=== PATIENT | female | born 1975 | race Caucasian/White ===

== ENCOUNTER 2021-09-24 10:59 | Emergency (ER) | payer BC, SELFPAY ==
[2021-09-24 11:00] VITALS: BP 151/101; PULSE 84; RESP 18; TEMP 36.6; O2SAT 97; BMI 30.2
[2021-09-24 11:20] VITALS: BP 145/94; PULSE 86; RESP 19; O2SAT 99
--- NOTE | 2021-09-24 11:49 | EKG12_ITS ---
Test Reason : PALPS Blood Pressure : / mmHG Vent. Rate : 077 BPM Atrial Rate : 077 BPM P-R Int : 142 ms QRS Dur : 084 ms QT Int : 380 ms P-R-T Axes : 068 050 054 degrees QTc Int : 430 ms Sinus rhythm with sinus arrhythmia with occasional Premature ventricular complexes Otherwise normal ECG Confirmed by WANG KIDD, ROSA MARIA ([id number]), order editor BERE DELEON ([id number]) on 09/26/2021 9:47:41 AM Referred By: [id number] Confirmed By:ROSA MARIA PIÑA MD
--- NOTE | 2021-09-24 11:50 | RAD_ITS ---
STUDY: X-RAY CHEST REASON FOR EXAM: Female, 46 years old. Palpitations TECHNIQUE: AP COMPARISON: None. FINDINGS: EKG leads project over the chest. The lungs are clear and expanded. There is no demonstrated pleural abnormality. Normal size heart. Normal mediastinum and jennifer. Normal visualized pulmonary arteries. Normal visualized aortic arch and descending thoracic aorta. Normal visualized thoracic spine. Normal visualized ribs, clavicles, and shoulders. There is no demonstrated abnormality of the visualized soft tissue structures of the upper abdomen. RAD/Chest 1 View (Portable) IMPRESSION: 1. Nonacute portable x-ray examination of the chest. Electronically Signed: Dann Mata MD ([place]) at 12:27 EST , Service support ,
[2021-09-24 11:58] LABS: Absolute Lymphocyte Count 1.54 X10^3/uL (0.83-4.51); Absolute Neutrophil Count 3.9 X10^3/uL (2.0-7.7); Basophil# 0.03 X10^3/uL; Basophil% 0.5 % (0-1); Eosinophil# 0.12 X10^3/uL; Hematocrit 42.5 % (37-47); Hemoglobin 14.1 g/dL (12.0-15.0); Lymphocyte # 1.54 X10^3/ul (0.83-4.51); Lymphocyte % 25.6 % (19-41); Mean Corp Hgb Conc 33.2 g/dL (32-36); Mean Corpuscular Hgb 31.1 pg (27.0-32.0); Mean Corpuscular Volume 93.8 fL (81-99); Mean Platelet Vol. 10.2 fl (6.2-12.0); Monocyte% 6.7 % (0-10); NRBC Flagged by Analyzer 0 % (0-5); Neutrophil # 3.91 X10^3/uL (2.7-7.7); Platelet Count 332 K/mm3 (150-450); RBC Distribution Width CV 12.5 % (11.6-14.6); RBC Distribution Width SD 43.1 fl (35.1-43.9); Red Blood Count 4.53 M/mm3 (4.2-5.4)
[2021-09-24 12:05] LABS: D-Dimer Quantitative (DVT/PE) <= 0.27 FEU/ug/m (0.27-0.49)
[2021-09-24 12:11] LABS: ALB/GLOB Ratio 0.9 RATIO (0.9-2.4); AST(SGOT) 11 U/L (15-37); Alanine Aminotransfer ALT/SGPT 17 U/L (13-56); Albumin, Serum 3.9 g/dL (3.2-5.0); Alkaline Phosphatase 71 U/L (45-117); Anion Gap 6 (5-15); BUN 10 mg/dL (7-18); BUN/Creat Ratio 14.3 RATIO (10-20); Calcium,Total 9.2 mg/dL (8.5-10.1); Chloride 107 mmol/L (98-107); EST Glomerular Filtration Rate 96 mL/min (>60); Est Glom Filt Rate - Afr Amer 117 mL/min (>60); Estimated Creatinine Clearance 96.01 ml/min; Globulin 4.2 g/dL (2.2-4.2); Glucose 99 mg/dL (74-106); Potassium 3.6 mmol/L (3.5-5.1); Protein, Total 8.1 g/dL (6.4-8.2); Sodium Level 137 mmol/L (136-145); Troponin-I HS 13 pg/mL (3.0-54.0)
[2021-09-24 12:15] LABS: Bacteria 0 SEEN /hpf (None Seen); Mucous, Urine 0 SEEN /hpf (<or=2+); Red Blood Cells-Urine 0 SEEN /hpf (0-5); White Blood Cells 0 SEEN /hpf (0-5)
[2021-09-24 12:18] LABS: Color, Urine Straw (Yellow); Glucose, Dipstick Normal (Normal); Ketone-Dipstick Negative (Negative); Leukocyte Esterase-Dipstick Negative /ul (Negative); Nitrite-Dipstick Negative (Negative); Occult Blood-Urine Negative /ul (Negative); Protein-Dipstick Negative (Negative); Urine Bilirubin Dipstick Negative (Negative); Urine Clarity Sl. Cloudy (Clear); Urine Urobilinogen Normal (Normal)
[2021-09-24 12:29] LABS: Squamous Epithelial Cells - UA 0-5 SEEN /hpf (5-10)
[2021-09-24 13:06] VITALS: BP 137/98; PULSE 77; RESP 18; O2SAT 100
[2021-09-24 13:48] LABS: Troponin-I HS 13 pg/mL (3.0-54.0)
--- NOTE | 2021-09-24 14:48 | ED.VIS.CHEST ---
HPI History of Present Illness Chief Complaint: Palpitations Informant: patient Onset/Context/Timing Onset: Days Activity at onset: sudden Timing: Intermittent Quality: Positive for Tightness Location: Substernal and Left Chest Worsened By: - (Having bowel movement) Relieved By: Nothing Narrative Narrative: Patient presents with palpitations that have been intermittent over the past several days. Patient states that when they come on she feels a tightness in her chest. Patient states that they have been coming on whenever she has been having a bowel movement or is about to have a bowel movement. Patient states nothing makes it go away. Patient admits to some nausea but denies any vomiting. Patient admits to some diaphoresis with these. Patient also admits to some lightheadedness. Patient also admits to pain in her jaw and cheeks. Patient also admits to some tingling in her left shoulder and left scapular area. Patient denies any fevers or chills. CVD Risk Factors: Positive for Hypercholesterolemia; Negative for Hypertension, Diabetes, Family History 1' </=55 and Smoking PE Risk Factors: Negative for Recent Travel/Surgery, Recent Immobilization, Prior DVT or PE, Cancer and OCP + Smoking + >/=35 PFSH PFSH Medical History (Updated 09/24/21 @ 14:[address] Bipin Jerome DO) Palpitation PVC (premature ventricular contraction) Home Medications omeprazole 20 mg PO/SL DAILY 09/24/21 [History Last Taken Unknown] Allergy/AdvReac Type Severity Reaction Status Date / Time codeine AdvReac Rash Verified 09/24/21 11:11 latex AdvReac Rash Verified 09/24/21 11:02 Family History no significant family his Surgical History (Updated 09/24/21 @ 14:[address] Bipin Jerome DO) History of colposcopy History of hysterectomy Hx of breast biopsy Hx of cholecystectomy Surgical History no surgical history Social History Smoking Status: Never smoker ROS ROS ED Constitutional Constitutional ED: Denies chills or fever(s) Eyes Eyes: Reports blurry vision; Denies diplopia ENT ENT ED: Denies rhinorrhea or sore throat Cardiovascular Cardiovascular: Reports chest pain and palpitations Respiratory/Chest Respiratory/Chest: Denies cough or dyspnea Gastrointestinal Gastrointestinal: Reports nausea; Denies abdominal pain or vomiting Genitourinary Genitourinary ED: Denies dysuria or hematuria Musculoskeletal Musculoskeletal: Reports back pain; Denies neck pain Integumentary Denies abscess or rash Neurologic Neurologic: Denies headache(s) or weakness Allergic/Immunologic Allergic/Immunologic ED: Denies mouth swelling or urticaria EXAM Physical Exam Const Vital Signs: 09/24/21 11:00 09/24/21 11:20 09/24/21 13:06 Temperature 97.8 F Temperature Source Temporal Pulse Rate 84 86 77 Respiratory Rate 18 19 H 18 Blood Pressure 151/101 H 145/94 H 137/98 H Blood Pressure Mean 117 111 111 Pulse Ox 97 99 100 Oxygen Delivery Method Room Air Room Air Room Air Positive well nourished and well developed General Appearance ED: well developed HEENT normocephalic and atraumatic Eyes PERRL and EOMs intact bilaterally Neck supple and no JVD Chest Wall palpation of chest normal Resp normal respiratory effort and clear to auscultation bilaterally Effort and Inspection: Negative for respiratory distress Cardio regular rate, regular rhythm and no murmurs GI normal to inspection, nondistended, normoactive bowel sounds, soft to palpation, non-tender and non-distended Extremity normal to inspection General Extremety ED: Negative for edema or tenderness General Extremity: Negative for edema Neuro oriented x3, CN's II-XII intact bilaterally and no sensory deficits noted Sensorium / Orientation: awake and alert Motor Exam: strength 5/5 throughout Psych mental status grossly normal Heart Score History: Slightly/Non-Suspicious ECG: Normal Age: </= 45 years Risk Factors: 1 or 2 Risk Factors Troponin: </= Normal Limit Score: 1 MDM MDM MDM Narrative Medical decision making narrative: EKG was obtained. On my interpretation, it showed a normal sinus rhythm with a rate of 77 with occasional PVCs. ID interval, QRS interval, and QTc intervals were all normal. [place] was normal. There are no acute ST or T wave changes. Portable 1 view chest x-ray was obtained. On my interpretation, lung geller are clear. There is normal cardiac silhouette. Bony thorax is normal. There is no acute process noted. Radiologist also interpreted the x-ray and agrees. CBC was within normal limits. D-dimer was normal. Comprehensive metabolic profile was within normal limits. Urinalysis does not show any evidence of urinary tract infection. High-sensitivity troponin was normal. 2-hour repeat high-sensitivity troponin was normal. Patient has a HEART score of 1. Patient was advised that this is low risk for acute cardiac event. Patient was instructed to follow-up with her primary care physician for further evaluation. Patient understood and was agreeable with the plan. All questions were answered. Lab Data Attestation: I reviewed the patient's lab results. Labs: Laboratory Results - last 24 hr 09/24/21 09/24/21 09/24/21 11:26 11:26 11:26 WBC 6.0 RBC 4.53 Hgb 14.1 Hct 42.5 MCV 93.8 MCH 31.1 MCHC 33.2 RDW Std Deviation 43.1 RDW Coeff of Livan 12.5 Plt Count 332 MPV 10.2 Immature Gran % (Auto) 0.200 Neut % (Auto) 65.0 Lymph % (Auto) 25.6 [place] % (Auto) 6.7 Eos % (Auto) 2.0 Baso % (Auto) 0.5 Absolute Neuts (auto) 3.9 Absolute Lymphs (auto) 1.54 Nucleated RBC % 0 D-Dimer Quant (PE/DVT) <= 0.27 Sodium 137 Potassium 3.6 Chloride 107 Carbon Dioxide 24.0 Anion Gap 6 BUN 10 Creatinine 0.70 Estim Creat Clear Calc 96.01 Est GFR (MDRD) Af Amer 117 Est GFR (MDRD) Non-Af 96 BUN/Creatinine Ratio 14.3 Glucose 99 Calcium 9.2 Total Bilirubin 0.40 AST 11 L ALT 17 Alkaline Phosphatase 71 Troponin I High Sens 13 Total Protein 8.1 Albumin 3.9 Globulin 4.2 Albumin/Globulin Ratio 0.9 Urine Color Urine Clarity Urine pH Ur Specific [place] Urine Protein Urine Glucose (UA) Urine Ketones Urine Occult Blood Urine Nitrite Urine Bilirubin Urine Urobilinogen Ur Leukocyte Esterase Urine RBC Urine WBC Ur Squamous Epith Cells Urine Bacteria Urine Mucus 09/24/21 09/24/21 12:08 13:24 WBC RBC Hgb Hct MCV MCH MCHC RDW Std Deviation RDW Coeff of Livan Plt Count MPV Immature Gran % (Auto) Neut % (Auto) Lymph % (Auto) [place] % (Auto) Eos % (Auto) Baso % (Auto) Absolute Neuts (auto) Absolute Lymphs (auto) Nucleated RBC % D-Dimer Quant (PE/DVT) Sodium Potassium Chloride Carbon Dioxide Anion Gap BUN Creatinine Estim Creat Clear Calc Est GFR (MDRD) Af Amer Est GFR (MDRD) Non-Af BUN/Creatinine Ratio Glucose Calcium Total Bilirubin AST ALT Alkaline Phosphatase Troponin I High Sens 13 Total Protein Albumin Globulin Albumin/Globulin Ratio Urine Color Straw Urine Clarity Sl. Cloudy Urine pH 7.0 Ur Specific [place] 1.010 Urine Protein Negative Urine Glucose (UA) Normal Urine Ketones Negative Urine Occult Blood Negative Urine Nitrite Negative Urine Bilirubin Negative Urine Urobilinogen Normal Ur Leukocyte Esterase Negative Urine RBC 0 SEEN Urine WBC 0 SEEN Ur Squamous Epith Cells 0-5 SEEN Urine Bacteria 0 SEEN Urine Mucus 0 SEEN Radiography Chest X-Ray - ED: 1 View, Read by ED Physician, Read by Radiologist and Normal Diagnostic Testing: Clinical Impression(s) from Imaging Studies Chest X-Ray 09/24/21 11:50 IMPRESSION: 1. Nonacute portable x-ray examination of the chest. Electronically Signed: Dann Mata MD ([place]) at 12:27 EST , Service support , EKG Initial EKG: Attestation: I personally reviewed and interpreted this EKG as follows: Interpretation: Sinus Rhythm (77 with occasional PVCs) and No Acute Injury Pattern Prior EKG tracings: not available for review Discharge Plan Triage Chief Complaint: Palpitations ED Provider: Bipin Jerome Dx/Rx/DC Orders Clinical Impression: Palpitations Instructions: ED Palpitations Prescriptions: No Action omeprazole 20 mg PO/SL DAILY RF: 0 Primary Care Provider: Graeme Davila Referrals: Graeme Davila MD [Primary Care Provider] - 3-5 Days Disposition Disposition: Home, Self Care
[2021-09-24 15:08] VITALS: BP 145/97; PULSE 70; RESP 16; O2SAT 98
== END 2021-09-24 15:11 | disposition home or self-care (01) ==
PROVIDERS: Emergency Provider Emergency Medicine; PCP Family Medicine
DX: R00.2 Palpitations (principal); R68.84 Jaw pain; R42 Dizziness and giddiness; R11.0 Nausea; R20.2 Paresthesia of skin; E78.00 Pure hypercholesterolemia, unspecified; Z79.899 Other long term (current) drug therapy
CPT/HCPCS: 71045; 80053; 81001; 84484; 85025; 85379; 93005; 99284; A4216